=== PATIENT | female | born 1945 | race Caucasian/White ===

== ENCOUNTER 2016-08-08 12:08 | Outpatient (CLI) | payer MEDICARE, OTHER | END 2016-08-08 12:09 | disposition home or self-care (01) | DX: Z53.9 Procedure and treatment not carried out, unspecified reason (principal) ==

== ENCOUNTER 2017-06-14 11:24 | Emergency (ER) | payer MEDICARE, OTHER ==
[2017-06-14 11:45] VITALS: BP 134/76
--- NOTE | 2017-06-14 13:13 | ED Physician Documentation ---
History of Present Illness - Stated complaint Stated Complaint: L TOE INJ - Chief complaint Chief Complaint: Ext Problem - History obtained from History obtained from: Patient (pt with left 2nd toe injury while at martial arts class today. states that he shit her toe on an object. staes that she has broken toes in the past. staes that she cam in because her toe was bent.) Review of Systems Constitutional: denies: Fever Skin: denies: Rash, Lesions, Laceration (s) Musculoskeletal: reports: Extremity pain (left foot), Pain with weight bearing ( left foot). denies: Neck pain, Back pain, Joint swelling Neurologic: denies: Head injury, LOC PD PAST MEDICAL HISTORY - Past Medical History Past Medical History: Yes Cardiovascular: High cholesterol Other Past Medical History: prediabetes - Past Surgical History Past Surgical History: No - Present Medications Home Medications: Ambulatory Orders Medication Instructions Recorded Confirmed ALPRAZolam [Alprazolam] 0.5 mg PO QPM PRN 06/14/17 06/14/17 Lovastatin [Altoprev] 20 mg PO DAILY 06/14/17 06/14/17 - Allergies Allergies/Adverse Reactions: Allergies Allergy/AdvReac Type Severity Reaction Status Date / Time No Known Drug Allergies Allergy Verified 06/14/17 11:36 - Social History Does the pt smoke?: No Smoking Status: Never smoker Does the pt drink ETOH?: Yes ETOH Use: Liquor Does the pt have substance abuse?: No - Immunizations Immunizations are current?: Yes - POLST Patient has POLST: No PD ED PE NORMAL - Vitals Vital signs reviewed: Yes - General General: Alert and oriented X 3, No acute distress, Well developed/nourished - Cardiac Cardiac: Strong equal pulses (DP) - Respiratory Respiratory: No respiratory distress - Derm Derm: Normal color, Warm and dry, No rash - Extremities Extremities: No tenderness to palpate (TTp over left 2nd toe). No: No deformity (left 2nd toe bent at 30 deg away from great toe), No edema - Neuro Neuro: Other (sensation intact to left 2nd toe). No: No sensory deficit Results - Vitals Vitals: Vital Signs - 24 hr 06/14/17 11:33 Temperature 36 C L Heart Rate 66 Respiratory 16 Rate Blood Pressure 134/76 H O2 Saturation 98 Oxygen O2 Source Room air - Rads (name of study) foot Radiology: Final report received (spiral fx prox phalanx 2nd toe), EMP read contemporaneously Procedures - Reduction Body part reduced: Left, Toe Fracture or dislocation: Fracture Anesthesia: Other (none) PD MEDICAL DECISION MAKING - ED course Complexity details: d/w patient ED course: pt is N/V intact. no skin changes over the fracture. Reduced the fracture and neto tape to the great toe placed. Pt given hard sole shoe. discussed injury with the PT. discussed RICE. gave return precautions. Departure - Departure Disposition: 01 Home, Self Care Clinical Impression: Toe fracture, left Condition: Good Instructions: ED Fx Toe Closed, ED RICE Comments: keep the toe elevated and use the shoe for comfort. Motrin for any pain. Return to the ER for any new or worsening symptoms.
--- NOTE | 2017-06-14 13:18 | XRAY Preliminary Report ---
Exam: XR TOE(S) LT IMPRESSION: Oblique, mildly displaced, intra-articular fracture involving approximately the distal keith lf of the proximal phalanx of second toe. [facility] SITE ID: [id number]
--- NOTE | 2017-06-14 13:20 | XRAY Report ---
EXAM: LEFT TOE RADIOGRAPHY EXAM DATE: 06/14/2017 12:46 PM. CLINICAL HISTORY: Toe injury. COMPARISON: None available. TECHNIQUE: 3 views. FINDINGS: Bones: There is an oblique fracture involving approximately the distal half of the proximal phalanx o f the small toe. The distal fragment is displaced laterally approximately 2 mm. There is extension in to the PIP joint on the lateral view. Joints: Normal joint alignment. Soft Tissues: Soft tissue swelling is present around the fracture. IMPRESSION: Oblique, mildly displaced, intra-articular fracture involving approximately the distal keith lf of the proximal phalanx of second toe. [facility] Referring Provider Line: [phone] SITE ID: [id number]
== END 2017-06-14 13:22 | disposition home or self-care (01) ==
LOC: ED 11:24
DX: S92.512A Displaced fracture of proximal phalanx of left lesser toe(s), initial encounter for closed fracture (principal); W22.8XXA Striking against or struck by other objects, initial encounter; Y93.75 Activity, martial arts; E78.00 Pure hypercholesterolemia, unspecified
CPT/HCPCS: 28660; 73660; 99283

== ENCOUNTER 2018-05-25 14:36 | Outpatient (CLI) | payer MEDICARE, OTHER ==
--- NOTE | 2018-05-26 16:11 | XRAY Report ---
Reason: R HIP PAIN, HX OF OA Procedure Date: 05/25/2018 Accession Number: [id number] / [id number] Procedure: XR - Hip w/Pelvis 2-3V RT CPT Code: FULL RESULT: EXAM: RIGHT HIP AND PELVIS RADIOGRAPHY EXAM DATE: 05/25/2018 03:03 PM. HISTORY: R HIP PAIN, HX OF OA. COMPARISONS: None. TECHNIQUE: 1 view of the pelvis and 1 view of the right hip. FINDINGS: Bones: No fracture or bone lesion. Joints: The bilateral hip, pubis symphysis, and sacroiliac joints are anatomically aligned. Minimal if any degenerative changes are present. Soft Tissues: Unremarkable. IMPRESSION: Negative pelvis and right hip for age. [facility]
== END 2018-05-25 14:37 | disposition home or self-care (01) ==
LOC: DI 14:36
PROVIDERS: ATTEND Nurse Practitioner Family
DX: M25.551 Pain in right hip (principal)

== ENCOUNTER 2018-06-19 16:45 | Emergency (ER) | payer MEDICARE, OTHER ==
[2018-06-19 16:58] VITALS: BP 144/86
--- NOTE | 2018-06-19 17:24 | ED Physician Documentation ---
PD HPI UPPER EXT INJURY - Stated complaint Stated Complaint: R HAND FINGER LAC - Chief complaint Chief Complaint: Laceration - History obtained from History obtained from: Patient - History of Present Illness Location: Right, Finger (index) Type of injury: Laceration (She cut her finger accidentally with a knife while washing the dishes. The laceration is at the site of the PIP joint so was opening up and bleeding whenever she bent it. She denies any weakness or numbness to the finger.) Where injury occurred: Home Timing - onset: Today Timing - details: Abrupt onset, Still present Worsened by: Moving Associated symptoms: No: Weakness, Numbness Similar symptoms before: Has not had sx before Recently seen: Not recently seen Review of Systems Skin: reports: Laceration (s) Neurologic: denies: Focal weakness, Numbness PD PAST MEDICAL HISTORY - Past Medical History Cardiovascular: High cholesterol - Past Surgical History Past Surgical History: Yes HEENT: Cataracts - Present Medications Home Medications: Ambulatory Orders Medication Instructions Recorded Confirmed Lovastatin [Altoprev] 20 mg PO DAILY 06/14/17 06/14/17 - Allergies Allergies/Adverse Reactions: Allergies Allergy/AdvReac Type Severity Reaction Status Date / Time No Known Drug Allergies Allergy Verified 06/19/18 16:55 - Social History Does the pt smoke?: No Smoking Status: Never smoker Does the pt drink ETOH?: Yes Does the pt have substance abuse?: No - Immunizations Immunizations are current?: Yes - POLST Patient has POLST: No PD ED PE NORMAL - Vitals Vital signs reviewed: Yes - General General: Alert and oriented X 3, No acute distress, Well developed/nourished - Derm Derm: Normal color, Warm and dry - Extremities Extremities: Other (There is a 1.5 cm laceration on the right index finger at the radial side of the dorsal PIP joint. It extends horizontally and there is no foreign body and does not involve the tendon. There is good full range of motion. The wound does open with range of motion and is still bleeding. There is strong extension against resistance. There is normal sensation and capillary refill in the tip.) - Neuro Neuro: No motor deficit, No sensory deficit Results - Vitals Vitals: Vital Signs - 24 hr 06/19/18 16:52 Temperature 36.2 C L Heart Rate 66 Respiratory 16 Rate Blood Pressure 144/86 H O2 Saturation 100 Oxygen O2 Source Room air Procedures - Laceration (location) right index finger Length in cm: 1.5 Wound type: Linear, Into subcut fat Neurovascular status: Sensory intact, Motor intact, Vascular intact Tendon involvement: No: Tendon Injury Anesthesia: Lidocaine 1% with epi Wound Preparation: Irrigated copiously NS Skin layer closure: Nylon, Interrupted, Size #-0 - enter number (4), Sutures - enter # (5) Other: Patient tolerated well, No complications, Neurovascular intact, Dressing applied, Tetanus UTD Complexity: Simple Departure - Departure Disposition: 01 Home, Self Care Clinical Impression: Finger laceration Qualifiers: Encounter type: initial encounter Finger: index finger Damage to nail status: without damage Foreign body presence: without foreign body Laterality: right Qualified Code(s): S61.210A - Laceration without foreign body of right index finger without damage to nail, initial encounter Condition: Stable Record reviewed to determine appropriate education?: Yes Instructions: ED Laceration Hand Comments: It is okay to wash and shower. Clean off the wound twice a day with soap and water, or peroxide and water. Apply some antibiotic ointment to it to keep it moist. Also to watch for signs of infection such as purulence, redness or increasing pain. Return to your primary care or the ER at the specified time for suture removal. Suture removal 8-10 days.
== END 2018-06-19 17:35 | disposition home or self-care (01) ==
LOC: ED 16:45
DX: S61.210A Laceration without foreign body of right index finger without damage to nail, initial encounter (principal); W26.0XXA Contact with knife, initial encounter; Y93.G1 Activity, food preparation and clean up; Y92.009 Unspecified place in unspecified non-institutional (private) residence as the place of occurrence of the external cause; E78.00 Pure hypercholesterolemia, unspecified
CPT/HCPCS: 12001; 99282; 99283

== ENCOUNTER 2018-08-29 12:52 | Outpatient (CLI) | payer MEDICARE, OTHER ==
[2018-08-29 13:15] LABS: GLUCOSE, URINE (UA) 250 mg/dL (NEGATIVE); KETONES,URINE (UA) TRACE mg/dL (NEGATIVE)
[2018-08-29 13:19] LABS: CLARITY,URINE CLEAR (CLEAR)
[2018-08-29 13:23] LABS: BILIRUBIN,URINE COLOR INTERFERENCE (NEGATIVE)
== END 2018-08-29 12:53 | disposition home or self-care (01) ==
LOC: LAB 12:52
PROVIDERS: ATTEND Internal Medicine
DX: R30.0 Dysuria (principal)
CPT/HCPCS: 81003; 87086

== ENCOUNTER 2018-09-20 09:28 | Outpatient (CLI) | payer MEDICARE, OTHER ==
[2018-09-20 09:41] LABS: HGB - HEMOGLOBIN 14.4 g/dL (12.0-16.0); MEAN CORPUSCULAR HGB CONC 34.8 g/dL (32.0-36.0); MEAN PLATELET VOLUME 6.5 fL (7.9-10.8); RED BLOOD COUNT 4.63 10^6/uL (4.20-5.40); WHITE BLOOD COUNT 4.2 x10^3/uL (4.8-10.8)
[2018-09-20 09:51] LABS: BILIRUBIN,URINE NEGATIVE (NEGATIVE); GLUCOSE, URINE (UA) NEGATIVE (NEGATIVE); KETONES,URINE (UA) NEGATIVE (NEGATIVE); LEUKOCYTE ESTERASE, URINE NEGATIVE (NEGATIVE); NITRITE,URINE NEGATIVE (NEGATIVE); OCCULT BLOOD,URINE SMALL (NEGATIVE); PROTEIN,URINE NEGATIVE (NEGATIVE); UROBILINOGEN,URINE 0.2 (NORMAL) E.U./dL (NORMAL)
[2018-09-20 09:52] LABS: CLARITY,URINE CLEAR (CLEAR)
[2018-09-20 10:02] LABS: ALBUMIN 4.4 g/dL (3.2-5.5); ALBUMIN/GLOBULIN RATIO 1.7 (1.0-2.2); ALKALINE PHOSPHATASE 51 IU/L (42-121); ALT ALANINE AMINOTRANSFERASE 23 IU/L (10-60); AST ASPARTATE AMINOTRANSFERASE 19 IU/L (10-42); BILIRUBIN,TOTAL 0.9 mg/dL (0.2-1.0); BUN - BLOOD UREA NITROGEN 17 mg/dL (6-20); CHOL/HDL RATIO 3.5 (<4.4); CHOLESTEROL 202 mg/dL; CREATININE 0.6 mg/dL (0.4-1.0); GFR - MDRD 99 (>89); GLUCOSE 103 mg/dL (70-100); HDL CHOLESTEROL 58 mg/dL; LDL CHOLESTEROL,CALCULATED 121 mg/dL; LDL/HDL RATIO 2.1 (<4.4); VLDL CHOLESTEROL 23 mg/dL
[2018-09-20 10:08] LABS: CALCIUM 9.6 mg/dL (8.5-10.3); CARBON DIOXIDE - CO2 28 mmol/L (21-32); CHLORIDE 104 mmol/L (101-111); SODIUM 139 mmol/L (135-145)
[2018-09-20 10:16] LABS: HB2 TOTAL 15.7 g/dL; HEMOGLOBIN A1C 0.54 g/dL; HEMOGLOBIN A1C % 5.3 % (4.6-6.2)
== END 2018-09-20 09:29 | disposition home or self-care (01) ==
LOC: RT 09:28
PROVIDERS: ATTEND Orthopaedic Surgery Orthopaedic Surgery of the Spine
DX: Z01.818 Encounter for other preprocedural examination (principal); E78.5 Hyperlipidemia, unspecified; N39.0 Urinary tract infection, site not specified; R73.01 Impaired fasting glucose
CPT/HCPCS: 36415; 80053; 80061; 81003; 83036; 83721; 85027; 93005

== ENCOUNTER 2020-01-24 09:21 | Outpatient (CLI) | payer MEDICARE, OTHER ==
--- NOTE | 2020-01-25 06:37 | Mammography Report ---
BILATERAL DIGITAL SCREENING MAMMOGRAM 3D/2D: 01/24/2020 Comparison is made to exams dated: 04/03/2016 mammogram, 08/28/2014 mammogram, 06/11/2013 mammogram, mammogram, 04/16/2011 mammogram, and 01/22/2010 mammogram - formerly [facility]. Ther e are scattered fibroglandular elements in both breasts. No significant masses, calcifications, or other findings are seen in either breast. There has been no significant interval change. IMPRESSION: NEGATIVE There is no mammographic evidence of malignancy. A 1 year screening mammogram is recommended. This exam was interpreted at Station ID: [id number]. NOTE: For mammograms, a report in lay terms will be sent to the patient. Approximately 15% of breast malignancies will not be visualized mammographically. In the management of a palpable breast mass, a negative mammogram must not discourage biopsy of a clinically suspicious lesion. Electronically Signed By: Ismael sharma/salvador:01/24/2020 12:08:58 letter sent: Normal Exam ACR BI-RADS Category 1: Negative 3341F PARENCHYMAL PATTERN: (A) - The breast(s) demonstrate(s) scattered fibroglandular densities. BI-RADS CATEGORY: (1) - 1 RECOMMENDATION: (ANNUAL) - Recommend routine annual screening mammography. [id number] 1 year screening LATERALITY: (B)
== END 2020-01-24 09:22 | disposition home or self-care (01) ==
LOC: DI 09:21
PROVIDERS: ATTEND Registered Nurse
DX: Z12.31 Encounter for screening mammogram for malignant neoplasm of breast (principal)
CPT/HCPCS: 77063; 77067

== ENCOUNTER 2020-08-06 13:17 | Outpatient (CLI) | payer MEDICARE, OTHER ==
--- NOTE | 2020-08-06 15:24 | XRAY Report ---
PROCEDURE: Cervical Spine 2 View INDICATIONS: CERVICALGIA TECHNIQUE: 3 view(s) of the cervical spine were acquired. COMPARISON: None. FINDINGS: Bones: No fractures or dislocations to the C7-T1 level. Degenerative endplate changes and bilateral facet hypertrophic changes are noted at C5-6 and C6-7 levels. The lateral masses of C1 appear intact on the odontoid view. No suspicious bony lesions. Soft tissues: No prevertebral soft tissue swelling. IMPRESSION: Degenerative disc disease in mid to lower cervical spine. No compression fracture or spo ndylolisthesis. Reviewed by: Chato Gomez MD on 08/06/2020 3:23 PM PST Approved by: Chato Gomez MD on 08/06/2020 3:23 PM PST Station ID: [id number]
== END 2020-08-06 13:18 | disposition home or self-care (01) ==
LOC: DI 13:17
PROVIDERS: ATTEND Registered Nurse
DX: M50.322 Other cervical disc degeneration at C5-C6 level (principal)

== ENCOUNTER 2021-04-18 15:35 | Outpatient (CLI) | payer MEDICARE, OTHER ==
--- NOTE | 2021-04-18 16:24 | XRAY Report ---
PROCEDURE: Hip w/Pelvis 2-3V LT INDICATIONS: LEFT HIP BURSITIS TECHNIQUE: AP pelvis with lateral view(s) of the left hip(s). COMPARISON: None. FINDINGS: Bones: No fractures or dislocations. Pelvic ring appears intact. No suspicious bony lesions. Mode rate bilateral degenerative hip joint space narrowing. Particular osteophyte are noted. No erosions. Fixation changes are present within the lower lumbar spine. Soft tissues: The visualized bowel gas pattern is normal. No suspicious soft tissue calcifications. IMPRESSION: Bilateral hip arthritis as above. Reviewed by: Kinga Jang MD on 04/18/2021 4:22 PM PDT Approved by: Kinga Jang MD on 04/18/2021 4:22 PM PDT Station ID: [id number]
== END 2021-04-18 15:36 | disposition home or self-care (01) ==
LOC: DI.N 15:35
PROVIDERS: ATTEND Physician Assistant
DX: M76.899 Other specified enthesopathies of unspecified lower limb, excluding foot (principal); M16.0 Bilateral primary osteoarthritis of hip

== ENCOUNTER 2022-01-07 08:00 | Outpatient (CLI) | payer MEDICARE, OTHER ==
--- NOTE | 2022-01-07 15:40 | XRAY Report ---
PROCEDURE: Knee 4 View RT INDICATIONS: RIGHT KNEE PAIN TECHNIQUE: 4 views of the right knee(s) were acquired. COMPARISON: None. FINDINGS: Bones: Mild medial compartment joint space narrowing and small joint effusion noted. Soft tissues: No suspicious soft tissue calcifications. IMPRESSION: Mild medial compartment joint space narrowing Reviewed by: Hermelindo Bass MD on 01/07/2022 2:39 PM [facility] Approved by: Hermelindo Bass MD on 01/07/2022 2:39 PM [facility] Station ID: [id number]
== END 2022-01-07 23:59 | disposition home or self-care (01) ==
LOC: DI.WOS 08:00
PROVIDERS: ATTEND Orthopaedic Surgery
DX: M25.861 Other specified joint disorders, right knee (principal)

== ENCOUNTER 2022-01-14 08:00 | Outpatient (CLI) | payer MEDICARE, OTHER ==
--- NOTE | 2022-01-14 18:40 | XRAY Report ---
PROCEDURE: Humerus RT INDICATIONS: BICEP PAIN TECHNIQUE: 2 views of the humerus were acquired. COMPARISON: None FINDINGS: Bones: No fractures or dislocations. No suspicious bony lesions. Soft tissues: No suspicious soft tissue calcifications. IMPRESSION: Unremarkable right humeral radiographs Reviewed by: Hermelindo Bass MD on 01/14/2022 5:39 PM [facility] Approved by: Hermelindo Bass MD on 01/14/2022 5:39 PM [facility] Station ID: [id number]
== END 2022-01-14 23:59 | disposition home or self-care (01) ==
LOC: DI.WOS 08:00
PROVIDERS: ATTEND Physician Assistant
DX: M79.601 Pain in right arm (principal)

== ENCOUNTER 2022-03-27 08:00 | Outpatient (CLI) | payer MEDICARE, OTHER ==
--- NOTE | 2022-03-27 15:52 | XRAY Report ---
PROCEDURE: Hip 2 View LT INDICATIONS: LEFT HIP PAIN TECHNIQUE: 2 views of the hip were acquired. COMPARISON: Radha view the pelvis and left hip dated 04/18/2021 FINDINGS: Bones: No fractures or dislocations. Mild hip joint space narrowing is redemonstrated. No suspiciou s bony lesions. The visualized pelvic ring appears intact. Soft tissues: No suspicious soft tissue calcifications or masses. IMPRESSION: No interval change. Mild hip joint space narrowing as before. Reviewed by: Veronika Simmons MD on 03/27/2022 3:50 PM PDT Approved by: Veronkia Simmons MD on 03/27/2022 3:50 PM PDT Station ID: [id number]
== END 2022-03-27 23:59 | disposition home or self-care (01) ==
LOC: DI.WOS 08:00
PROVIDERS: ATTEND Orthopaedic Surgery
DX: M70.72 Other bursitis of hip, left hip (principal)

== ENCOUNTER 2022-08-29 07:59 | Outpatient (CLI) | payer MEDICARE, OTHER ==
[2022-08-29 08:33] LABS: ALBUMIN 3.8 g/dL (3.2-5.5); ALBUMIN/GLOBULIN RATIO 1.7 (1.0-2.2); ALKALINE PHOSPHATASE 60 IU/L (42-121); ALT ALANINE AMINOTRANSFERASE 14 IU/L (10-60); AST ASPARTATE AMINOTRANSFERASE 18 IU/L (10-42); BILIRUBIN,TOTAL 0.7 mg/dL (0.2-1.0); BUN - BLOOD UREA NITROGEN 20 mg/dL (6-20); CALCIUM 9.4 mg/dL (8.5-10.3); CARBON DIOXIDE - CO2 26 mmol/L (21-32); CHLORIDE 104 mmol/L (101-111); CHOL/HDL RATIO 2.5 (<4.4); CHOLESTEROL 169 mg/dL; CREATININE 0.7 mg/dL (0.4-1.0); GFR - MDRD 82 (>89); GLUCOSE 115 mg/dL (70-100); HDL CHOLESTEROL 67 mg/dL; LDL CHOLESTEROL,CALCULATED 91 mg/dL; LDL/HDL RATIO 1.4 (<4.4); POTASSIUM 4.3 mmol/L (3.5-5.0); SODIUM 139 mmol/L (135-145); TRIGLYCERIDES 55 mg/dL; VLDL CHOLESTEROL 11 mg/dL
[2022-08-31 04:07] LABS: HCV AB <0.1 s/co ratio (0.0-0.9)
== END 2022-08-29 08:00 | disposition home or self-care (01) ==
LOC: LAB 07:59
PROVIDERS: ATTEND Registered Nurse
DX: E78.5 Hyperlipidemia, unspecified (principal); R73.01 Impaired fasting glucose; Z11.59 Encounter for screening for other viral diseases
CPT/HCPCS: 36415; 80053; 80061; 83721; 86803

== ENCOUNTER 2022-09-17 15:13 | Outpatient (CLI) | payer MEDICARE, OTHER ==
--- NOTE | 2022-09-17 17:28 | XRAY Report ---
PROCEDURE: Knee 4 View LT INDICATIONS: LEFT KNEE PAIN TECHNIQUE: 4 views of the left knee(s) were acquired. COMPARISON: None. FINDINGS: Bones: No fractures or dislocations. No suspicious bony lesions. There is mild bilateral femoroti bial compartment narrowing. There are small left patellofemoral osteophytes. Soft tissues: No joint effusion. No suspicious soft tissue calcifications. IMPRESSION: Left knee osteoarthritis. Reviewed by: Veronika Simmons MD on 09/17/2022 5:27 PM PST Approved by: Veronika Simmons MD on 09/17/2022 5:27 PM [facility] Station ID: [id number]
== END 2022-09-17 15:17 | disposition home or self-care (01) ==
LOC: DI.WOS 15:13
PROVIDERS: ATTEND Physician Assistant Surgical
DX: M17.12 Unilateral primary osteoarthritis, left knee (principal)

== ENCOUNTER 2022-09-19 12:56 | Outpatient (CLI) | payer MEDICARE, OTHER ==
--- NOTE | 2022-09-19 18:07 | DEXA Report ---
PROCEDURE: Dexa Spine and/or Hip INDICATIONS: OSTEOPENIA TECHNIQUE: Dual energy x-ray absorptiometry (DXA) was performed on a [employer] System. Regions measur ed are the AP Spine, femoral neck, and if needed forearm. COMPARISON: 08/17/2015 FINDINGS: Lumbar Spine: Bone Mineral Density 1.138 g/cm/cm,T score -0.4, normal. Previous T score -0.3. L4 now excluded du e to presence of fusion hardware. Left Femoral Neck: Bone Mineral Density 0.726 g/cm/cm, T score -2.2, osteopenia. Previous T score -1.7. Left Hip: Bone Mineral Density 0.730 g/cm/cm,T score -2.2, osteopenia. Previous T score -1.3. (T score greater or equal to -1.0: NORMAL) (T score from -1.1 to -2.4: OSTEOPENIA) (T score less than or equal to -2.5 to: OSTEOPOROSIS) Impression: Osteopenia. Patients with diagnosis of osteoporosis or osteopenia should have regular bone mineral density assess ment. For those eligible for Medicare, routine testing is allowed once every 2 years. Testing frequ ency can be increased for patients who have rapidly progressing disease or for those who are receivin g medical therapy to restore bone mass. Reviewed by: Patricio Wynn MD on 09/19/2022 6:06 PM PST Approved by: Patricio Wynn MD on 09/19/2022 6:06 PM PST Station ID: [id number]
== END 2022-09-19 12:57 | disposition home or self-care (01) ==
LOC: DI 12:56
PROVIDERS: ATTEND Registered Nurse
DX: M85.89 Other specified disorders of bone density and structure, multiple sites (principal)

== ENCOUNTER 2023-05-18 08:00 | Outpatient (CLI) | payer MEDICARE, OTHER ==
--- NOTE | 2023-05-18 16:21 | XRAY Report ---
PROCEDURE: Shoulder 3 View RT INDICATIONS: RIGHT SHOULDER PAIN TECHNIQUE: 3 views of the shoulder were acquired. COMPARISON: None. FINDINGS: Bones: No fracture. Slight appearance of widening of the acromioclavicular joint space. Glenohumeral narrowing. No suspicious bony lesions. Visualized ribs appear intact. Soft tissues: No suspicious soft tissue calcifications. The visualized lungs are within normal limi ts. IMPRESSION: Mild widening at the acromioclavicular joint space which may be indicative of sprain. Reviewed by: Kinga Jang MD on 05/18/2023 4:20 PM PDT Approved by: Kinga Jang MD on 05/18/2023 4:20 PM PDT Station ID: [id number]
== END 2023-05-18 23:59 | disposition home or self-care (01) ==
LOC: DI.WOS 08:00
PROVIDERS: ATTEND Orthopaedic Surgery
DX: S46.291A Other injury of muscle, fascia and tendon of other parts of biceps, right arm, initial encounter (principal)

== ENCOUNTER 2024-01-30 08:20 | Outpatient (CLI) | payer MEDICARE, OTHER ==
[2024-01-30 09:36] LABS: ALBUMIN 4.6 g/dL (3.2-5.5); ALKALINE PHOSPHATASE 75 IU/L (42-121); ALT ALANINE AMINOTRANSFERASE 12 IU/L (10-60); AST ASPARTATE AMINOTRANSFERASE 16 IU/L (10-42); BILIRUBIN,TOTAL 0.9 mg/dL (0.2-1.0); BUN - BLOOD UREA NITROGEN 20 mg/dL (6-20); CALCIUM 10.2 mg/dL (8.5-10.3); CARBON DIOXIDE - CO2 31 mmol/L (21-32); CHLORIDE 104 mmol/L (101-111); CHOL/HDL RATIO 2.7 (<4.4); CHOLESTEROL 191 mg/dL; CREATININE 0.7 mg/dL (0.6-1.3); GFR - MDRD 81 (>89); GLUCOSE 104 mg/dL (74-104); HDL CHOLESTEROL 71 mg/dL; LDL CHOLESTEROL,CALCULATED 108 mg/dL; LDL/HDL RATIO 1.5 (<4.4); POTASSIUM 4.5 mmol/L (3.5-4.5); SODIUM 139 mmol/L (135-145); TOTAL PROTEIN 6.9 g/dL (6.4-8.9); TRIGLYCERIDES 62 mg/dL; VLDL CHOLESTEROL 12 mg/dL
[2024-01-30 11:19] LABS: ESTIMATED AVERAGE GLUCOSE 100 mg/dL (70-100); HEMOGLOBIN A1c% 5.1 % (4.27-6.07)
== END 2024-01-30 08:21 | disposition home or self-care (01) ==
LOC: LAB 08:20
PROVIDERS: ATTEND Registered Nurse
DX: E78.5 Hyperlipidemia, unspecified (principal); R73.01 Impaired fasting glucose
CPT/HCPCS: 36415; 80053; 80061; 83036; 83721